=== PATIENT | female | born 1935 | race Caucasian/White ===

== ENCOUNTER → 2017-04-29 09:33 | Outpatient (CLI) | payer MEDICARE, OTHER ==
[2011-03-06 06:49] VITALS: BMI 23.9
== END | disposition home or self-care (01) ==
LOC: D.MRI 09:33
DX: M25.512 Pain in left shoulder (principal)

== ENCOUNTER 2018-02-02 06:20 | Day surgery (SDC) | payer MEDICARE, OTHER ==
[2018-01-30 12:37] LABS: BASOPHILS 0.3 % (0-2); EOSINOPHILS 2.6 % (0-7); HEMATOCRIT 39.1 % (36.0-48.0); HEMOGLOBIN 13.2 g/dL (12-16); IMMATURE GRANULOCYTES 0.3 % (0-5); LYMPHOCYTES 29.4 % (15-50); MCH 31.1 pg (26.0-34.0); MCHC 33.8 g/dL (31.0-37.0); MCV 92.2 fL (80.0-100.0); MEAN PLATELET VOLUME 8.9 fL (7.4-10.4); MONOCYTES 5.7 % (2-11); NEUTROPHILS 61.7 % (40-80); PLATELET COUNT 304 10x3/uL (130-400); RBC 4.24 10x6/uL (4.00-5.40); RDW 13.2 % (11.5-14.5)
[2018-01-30 13:09] LABS: ANION GAP 14.5 mmol/L (8-16); CALCIUM 11.1 mg/dL (8.5-10.1); CARBON DIOXIDE 26.8 mmol/L (21.0-32.0); CREATININE - SERUM 0.9 mg/dL (0.6-1.3); POTASSIUM - SERUM 4.3 mmol/L (3.5-5.1)
[~2018-02-02] VITALS: Ht 149.9 cm; Wt 54.4 kg
--- NOTE | ~2018-02-02 | OP ---
PATIENT NAME: AYAH VIRAMONTES MEDICAL RECORD: [id number] :36 LOCATION:[facility] ADMISSION DATE: SURGEON: YOLANDA HENNING MD DATE OF OPERATION: 02/02/2018 PREOPERATIVE DIAGNOSES: 1. Rotator cuff tear of the right shoulder with impingement syndrome. 2. Acromioclavicular arthritis. 3. Biceps tendinitis. 4. Carpal tunnel syndrome of the right hand. POSTOPERATIVE DIAGNOSES: 1. Rotator cuff tear of the right shoulder with impingement syndrome. 2. Acromioclavicular arthritis. 3. Biceps tendinitis. 4. Carpal tunnel syndrome of the right hand. PROCEDURES: 1. Arthroscopic rotator cuff repair. 2. Arthroscopic biceps tenotomy. 3. Arthroscopic distal clavicle excision done through separate incision. 4. Open carpal tunnel release. 5. Arthroscopic subacromial decompression with acromioplasty and bursectomy. SURGEON: Yolanda Henning MD DATA CAPTURE SPECIALIST: Leonel Lozano APN, FA ANESTHESIA: General. INTRAOPERATIVE COMPLICATIONS: None. SUMMARY OF PATHOLOGIC FINDINGS: The patient did present to the clinic with both positive carpal tunnel syndrome findings and testing. Furthermore, the patient had an MRI that showed a rotator cuff tear with impingement as well as acromioclavicular arthritis and biceps tendinitis. The procedures were all performed in a lateral position including the carpal tunnel release. OPERATIVE SUMMARY IN DETAIL: After obtaining the appropriate preoperative orthopedic surgery consent as well as anesthetic consultation, evaluation and clearance, the patient was brought to the operating room and placed on the operating table in supine position. After adequate general laryngeal mask airway was administered, the patient was placed in a left lateral decubitus position. All pressure points were well padded to include down leg peroneal pad as well as axillary roll. The entire right upper extremity and shoulder were then prepped and draped in routine sterile fashion. The arm was held in the Arthrex traction boom at 30 degrees of forward flexion, 30 degrees of abduction, and 10 pounds of traction laterally. Arthroscopy was established in the glenohumeral joint for posterior portal. Anterior portal was established in the anterior safe interval. Transrotator cuff tear portal was established laterally through which a diagnostic arthroscopy did show the patient to have some bicipital labral tearing; however, severe biceps tendonitis was noted with substantial fraying. Biceps was then tenotomized and mild labral debridement was performed. Having completed this, the articular aspect of the supraspinatus tendinous footprint was decorticated back to bleeding cancellous bone. Having OPERATIVE REPORT [id number] WANDERAYAH completed this, attention was then turned to the subacromial space. While in the subacromial space, Arthrex tissue ablation system was utilized to denude the undersurface of the acromion of all soft tissue elements and release the coracoacromial ligament. A 5-0 barrel bur was then used to perform acromioplasty at the level of acromioclavicular joint and then through a separate anterior arthroscopic portal, distal clavicle excision for 1 cm was completed. Attention was then turned to the rotator cuff. Further decortication was carried out in the subacromial space for reapproximation of the rotator cuff. Inverted FiberTape was then placed in 2 separate positions for reapproximation of the rotator cuff back to the supraspinatus tendinous footprint. It was held firmly with a 5.0 and 4.75 suture anchor SwiveLock from Arthrex. Having completed this, arthroscopy portals were closed in routine interrupted fashion. Temporary dressings were applied. The patient's arm was then sterilely taken out of the traction boot. An Esmarch bandage was then used as a tourniquet. The distal aspect of the extremity was exsanguinated. The tourniquet was then held in place. Incision was made in the mid palmar aspect, taken down to the level of transverse carpal ligament. Transverse carpal ligament was exposed as was the median nerve. The median nerve was then protected with a [place] elevator and then the [place] light knife was then used under direct visualization to release the entire transverse carpal ligament. Having completed this, the wound was then irrigated and closed with 4-0 Prolene in running fashion by Osiel Lozano APN. Sterile dressings were applied at this and at the shoulder. The patient was then awakened and taken to recovery room in stable condition. All final needle and sponge counts were correct. TRANSINT:[id number] Voice Confirmation ID: [id number] DOCUMENT ID: [id number] 03/03/2018 Edited to add Osiel Lozano APN to body of report, dm. JUVENCIO CRUZ, YOLANDA PHILIPPE at 1932 CC: [id number] DICTATION DATE: 02/06/18 1058 GLOVE PRESSER: 02/06/18 1231 [facility] 02/02/18 [id number] [place] [address]
[~2018-02-02 06:20] MED LIST: DULERA 100 MCG8.8 GM INH; LOVASTATIN20 MG PO; OMEPRAZOLE20 M1 PO; PRINIVIL20 MG PO; XALATAN 0.0052.5 ML EACH EYE
[2018-02-02] MEDS ORDERED: ZOFRAN4 MG PO (07:23)
[2018-02-02 07:37] VITALS: BP 120/84; Ht 149.9 cm; Wt 54.4 kg
[2018-02-02] MEDS ORDERED: DILAUDID2 MG PO (10:39)
[2018-02-02] MEDS ORDERED: ZOFRAN ODT4 MG/UDTAB PO (10:40)
== END 2018-02-02 16:55 | disposition home or self-care (01) ==
LOC: D.OPS 06:20 → D.PAN 07:30 → D.OPS 08:45
PROVIDERS: Anesthesiology
DX: M75.41 Impingement syndrome of right shoulder (principal); M75.21 Bicipital tendinitis, right shoulder; G56.01 Carpal tunnel syndrome, right upper limb; Z01.812 Encounter for preprocedural laboratory examination

== ENCOUNTER → 2018-04-15 15:24 | Outpatient (CLI) | payer MEDICARE, OTHER ==
[2018-02-02 07:37] VITALS: BMI 24.3
[~2018-04-15 15:24] MED LIST changes: +DILAUDID2 MG PO; +ZOFRAN ODT4 MG/UDTAB PO; +ZOFRAN4 MG PO
== END | disposition home or self-care (01) ==
LOC: D.MRI 15:24
DX: M54.12 Radiculopathy, cervical region (principal); M75.102 Unspecified rotator cuff tear or rupture of left shoulder, not specified as traumatic

== ENCOUNTER 2018-05-14 05:00 | Day surgery (SDC) | payer MEDICARE, OTHER ==
[2018-05-12 10:53] LABS: BASOPHILS 0.3 % (0-2); EOSINOPHILS 2.8 % (0-7); HEMATOCRIT 39.1 % (36.0-48.0); HEMOGLOBIN 13.3 g/dL (12-16); IMMATURE GRANULOCYTES 0.2 % (0-5); LYMPHOCYTES 31.9 % (15-50); MCH 30.2 pg (26.0-34.0); MCV 88.9 fL (80.0-100.0); MEAN PLATELET VOLUME 8.9 fL (7.4-10.4); MONOCYTES 6.4 % (2-11); NEUTROPHILS 58.4 % (40-80); PLATELET COUNT 277 10x3/uL (130-400); WBC 6.4 10x3/uL (4.8-10.8)
[2018-05-12 11:02] LABS: ANION GAP 15.5 mmol/L (8-16); CALCIUM 10.4 mg/dL (8.5-10.1); CARBON DIOXIDE 25.5 mmol/L (21.0-32.0)
[~2018-05-14] VITALS: Ht 149.9 cm; Wt 56.7 kg
[2018-05-14 06:24] VITALS: BP 137/72; Ht 149.9 cm; Wt 56.7 kg
[2018-05-14] MEDS ORDERED: DILAUDID2 MG PO (09:07)
--- NOTE | 2018-05-14 09:55 | NUR ---
PATIENT VOIDED IN PACU 200CC YELLOW URINE. WILL CONTINUE TO MONITOR.
--- NOTE | 2018-05-14 10:11 | NUR ---
CONSULTED ANESTHESIA REGARDING RESTLESSNESS AND UNABLE TO BE STILL. ANESTHESIA AT BEDSIDE. VERBAL ORDERS RECEIVED AND IMPLEMENTED. VERBAL ORDERS RECEIVED FROM DR HOWELL TO ADMINISTER VERSED. ORDERS RECEIVED AND IMPLEMENTED. SEE MAR.
--- NOTE | 2018-05-14 11:48 | NUR ---
1149 ANDRES MARCOS CRNA HERE FOR FOLLOWUP EVALUATION ON TREMORS AND PT'S OXYGEN SATURATION. TREMORS AT A MINIMUM. PT DOES REPORT THAT ON OCCASION SHE HAS TREMORS AT HOME. O2 SAT AT 92%. PT USED RESCUE INHALER X2 TO HELP IMPROVE SATS. [place]ON REQUESTS TO WATCH PATIENT A LITTLE LONGER BEFORE DISCHARGE.
--- NOTE | 2018-05-14 13:48 | NUR ---
1230 IV DC'D. CATHETER INTACT. NO BLEEDING AT SITE. BANDAID APPLIED. ANDRES MARCOS CRNA HERE TO EVALUATE PRIOR TO DISCHARGE HOME. O2 SAT STABLE. OCC TREMOR BUT GREATLY REDUCED. PT HAS BEEN CLEARED TO GO HOME. 1245 DR HENNING HERE AND AWARE OF PT NOT HAVING HELP AT HOME. REQUESTED THAT GLORIA IN HIS OFFICE BE CALLED TO SET UP HOME HEALTH SERVICES. PT FULLY DRESSED WITH ASSISTANCE OF TWO NURSES.
--- NOTE | 2018-05-14 14:26 | OP ---
PATIENT NAME: AYAH VIRAMONTES MEDICAL RECORD: [id number] :36 LOCATION:[facility] ADMISSION DATE: SURGEON: YOLANDA HENNING MD DATE OF OPERATION: 05/14/2018 PREOPERATIVE DIAGNOSIS: Recurrent rotator cuff tear of the left shoulder. POSTOPERATIVE DIAGNOSIS: Recurrent rotator cuff tear of the left shoulder. PROCEDURE: Arthroscopic assisted rotator cuff repair of the left shoulder. SURGEON: Yolanda Henning MD. PAPER GUILLOTINE OPERATOR: Tasneem Caballero. INTRAOPERATIVE COMPLICATIONS: None. SUMMARY OF PATHOLOGIC FINDINGS: The patient had completely re-torn her rotator cuff from previous fixation in keeping with her known recurrent injury as well as physical examination and MRI. OPERATIVE SUMMARY IN DETAIL: After obtaining the appropriate preoperative orthopedic surgery consent as well as anesthetic consultation, evaluation and clearance, the patient was brought to the operating room and placed on the operating table in supine. After adequate general laryngeal mask airway was administered, the patient was placed in the right lateral decubitus position. All pressure points were well padded to include down leg peroneal pad as well as axillary roll. The patient was held firmly to the operating table using the vacuum pack suction system. The patient's right upper extremity and shoulder were then prepped and draped in a routine sterile fashion. The arm was held in the Arthrex traction boom at 30 degrees of forward flexion, 30 degrees of abduction with 10 pounds of traction laterally. Arthroscopy was established in the glenohumeral joint from the posterior portal. Anterior portal was established in the anterior safe interval. Diagnostic arthroscopy did reveal the above findings. Attention was turned to the subacromial space. All previously placed anchors and sutures were removed serially and sequentially. Further decortication was carried out as far as cleaning up of the rotator cuff tear itself. Multiple intraoperative photographs were taken. The medial row of the SpeedBridge were placed. The wedge tails were passed medially and the rotator cuff and then split, crisscrossed, and attached much further down into the metaphyseal area for good fixation. It is of note that the lateral row suture anchors were exchanged from the 4.75 to the 5.5 for better fixation in this 82-year-old female. Good rotator cuff repair was achieved. The tail of the anterior inferior SwiveLock was used to suture down in one of the dog ears. This was quite simply tied. Having completed this, the portals were closed in routine interrupted fashion using 4-0 Prolene. Sterile dressings were applied. The patient was awakened and taken to recovery room in stable condition. All final needle and sponge counts were correct. TRANSINT:[id number] Voice Confirmation ID: [id number] DOCUMENT ID: [id number] OPERATIVE REPORT [id number] AYAH VIRAMONTES MD, YOLANDA PHILIPPE at 1426 CC: [id number] DICTATION DATE: 05/14/18920 [employer] OPERATOR HELPER: 05/14/18 1059 [facility] 05/14/18 [address] [place] [address]
== END 2018-05-14 13:00 | disposition home or self-care (01) ==
LOC: D.OPS 05:00 → D.PAN 07:30 → D.OPS 13:00
PROVIDERS: Anesthesiology
DX: M75.102 Unspecified rotator cuff tear or rupture of left shoulder, not specified as traumatic (principal)

== ENCOUNTER 2018-10-23 16:53 | Emergency (ER) | payer MEDICARE, OTHER ==
[~2018-10-23] VITALS: Ht 149.9 cm; Wt 56.4 kg
[2018-10-23 17:00] VITALS: Ht 149.9 cm; Wt 56.4 kg
[2018-10-23] MEDS ORDERED: BAYER CHEWABLE81 MG PO (17:03)
[2018-10-23] MEDS ORDERED: LIPITOR20 MG PO ×3 (17:03→17:05)
[2018-10-23] MEDS ORDERED: HTN MED (17:06)
[2018-10-23 20:32] LABS: BASOPHILS 0.1 % (0-2); EOSINOPHILS 3.1 % (0-7); HEMATOCRIT 36.9 % (36.0-48.0); HEMOGLOBIN 12.7 g/dL (12-16); IMMATURE GRANULOCYTES 0.3 % (0-5); LYMPHOCYTES 19.6 % (15-50); MCH 29.9 pg (26.0-34.0); MCHC 34.4 g/dL (31.0-37.0); MCV 86.8 fL (80.0-100.0); MEAN PLATELET VOLUME 8.8 fL (7.4-10.4); MONOCYTES 9.9 % (2-11); PLATELET COUNT 250 10x3/uL (130-400); RBC 4.25 10x6/uL (4.00-5.40); RDW 14.3 % (11.5-14.5); WBC 7.8 10x3/uL (4.8-10.8)
[2018-10-23 20:43] LABS: APTT 26.7 SECONDS (22.8-39.4); INR 0.96 (0.85-1.17); PROTIME 12.3 SECONDS (11.6-15.0)
[2018-10-23] MEDS ORDERED: HYDROCODON-ACE1 EAC7 PO (20:50)
[2018-10-23 20:52] LABS: ALBUMIN 3.3 g/dL (3.4-5.0); ANION GAP 12.8 mmol/L (8-16); BILIRUBIN - TOTAL 0.55 mg/dL (0.2-1.3); CALCIUM 9.8 mg/dL (8.5-10.1); CARBON DIOXIDE 25.8 mmol/L (21.0-32.0); POTASSIUM - SERUM 3.6 mmol/L (3.5-5.1); PROTEIN - SERUM 6.8 g/dL (6.4-8.2)
[2018-10-23] MEDS ORDERED: ZOFRAN ODT4 MG/UDTAB PO (20:52)
[2018-10-23 21:36] VITALS: BP 136/74
== END 2018-10-23 21:58 | disposition home or self-care (01) ==
LOC: D.ER 16:53
PROVIDERS: Family Medicine
DX: S42.202A Unspecified fracture of upper end of left humerus, initial encounter for closed fracture (principal); W18.30XA Fall on same level, unspecified, initial encounter; I10 Essential (primary) hypertension; J44.9 Chronic obstructive pulmonary disease, unspecified

== ENCOUNTER → 2018-11-25 15:53 | Outpatient (CLI) | payer MEDICARE, OTHER ==
[2018-10-23 17:00] VITALS: BMI 25.1
[~2018-11-25 15:53] MED LIST changes: +BAYER CHEWABLE81 MG PO; +BREO ELLIPTA 11 EACH INH; +FUROSEMIDE20 MG PO; +HTN MED; +HYDROCODON-ACE1 EAC7 PO; +LIPITOR20 MG PO; +METOPROLOL TART25 MG PO; +SOMA250 MG PO; +TORADOL10 MG PO
== END | disposition home or self-care (01) ==
LOC: D.US 15:53
PROVIDERS: ATTEND Clinical Nurse Specialist Family Health
DX: R60.0 Localized edema (principal)

== ENCOUNTER → 2018-12-01 13:29 | Outpatient (CLI) | payer MEDICARE, OTHER ==
[2018-10-23 17:00] VITALS: BMI 25.1
== END | disposition home or self-care (01) ==
LOC: D.CT 13:29
PROVIDERS: ATTEND Clinical Nurse Specialist Family Health
DX: S42.242D 4-part fracture of surgical neck of left humerus, subsequent encounter for fracture with routine healing (principal)

== ENCOUNTER 2018-12-08 05:39 | Outpatient (CLI) | payer MEDICARE, OTHER ==
[~2018-12-08] VITALS: Ht 149.9 cm; Wt 55.5 kg
[~2018-12-08 05:39] MED LIST changes: -BREO ELLIPTA 11 EACH INH; -FUROSEMIDE20 MG PO; -METOPROLOL TART25 MG PO; -SOMA250 MG PO; -TORADOL10 MG PO
[2018-12-08 05:55] LABS: BASOPHILS 0.5 % (0-2); EOSINOPHILS 5.1 % (0-7); HEMOGLOBIN 12.5 g/dL (12-16); IMMATURE GRANULOCYTES 0.1 % (0-5); LYMPHOCYTES 39.6 % (15-50); MCH 30.3 pg (26.0-34.0); MCHC 34.7 g/dL (31.0-37.0); MCV 87.2 fL (80.0-100.0); MEAN PLATELET VOLUME 8.5 fL (7.4-10.4); MONOCYTES 8.9 % (2-11); NEUTROPHILS 45.8 % (40-80); PLATELET COUNT 246 10x3/uL (130-400); RBC 4.13 10x6/uL (4.00-5.40); RDW 13.4 % (11.5-14.5); WBC 7.3 10x3/uL (4.8-10.8)
[2018-12-08 06:19] LABS: APTT 27.7 SECONDS (22.8-39.4); INR 0.94 (0.85-1.17); PROTIME 12.1 SECONDS (11.6-15.0)
[2018-12-08 06:22] LABS: ANION GAP 14.2 mmol/L (8-16); CALCIUM 10.3 mg/dL (8.5-10.1); CARBON DIOXIDE 26.7 mmol/L (21.0-32.0); POTASSIUM - SERUM 3.9 mmol/L (3.5-5.1)
[2018-12-08] MEDS ORDERED: METOPROLOL TART25 MG PO (07:01)
[2018-12-08] MEDS ORDERED: FUROSEMIDE20 MG PO (07:02)
[2018-12-08] MEDS ORDERED: TORADOL10 MG PO (07:02)
[2018-12-08] MEDS ORDERED: SOMA250 MG PO (07:03)
[2018-12-08] MEDS ORDERED: BREO ELLIPTA 11 EACH INH (07:04)
[2018-12-08 07:07] VITALS: Ht 149.9 cm; Wt 55.5 kg
--- NOTE | 2018-12-08 07:39 | NUR ---
PT/DAUGHTER WISH TO SPEAK TO DR. AVILA AND ANESTHESIA TEAM BEFORE SIGNING CONSENTS. I CALLED RADIOLOGY TO INFORM THEM. NO ONE ANSWERED. WILL CONTINUE TO CALL.
--- NOTE | 2018-12-08 09:05 | NUR ---
PATIENT CAME BACK TO THE UNIT, PROCEDURE WAS NOT DONE. PHYSICIAN WOULD LIKE A SCAN DONE PRIOR TO A BIOPSY. KENY
--- NOTE | 2018-12-08 09:07 | NUR ---
IV REMOVED WITH NO COMPLAINTS. MV
--- NOTE | 2018-12-08 09:37 | NUR ---
PATIENT ATE A REGULAR TRAY SHE DID NOT HAVE A PROCEDURE. SHE TOLERATED HER MEAL WELL. MV
--- NOTE | 2018-12-08 09:43 | NUR ---
PATIENT LEFT UNIT WITH DAUGHTER. MV
== END 2018-12-08 09:40 ==
LOC: D.SP 05:39 → D.CT 08:00 → D.SP 09:40
PROVIDERS: General Practice; ATTEND Orthopaedic Surgery
DX: J84.17 Other interstitial pulmonary diseases with fibrosis in diseases classified elsewhere (principal); Z53.9 Procedure and treatment not carried out, unspecified reason; Z01.812 Encounter for preprocedural laboratory examination

== ENCOUNTER 2019-01-06 06:40 | Inpatient (IN) | payer MEDICARE, OTHER ==
[~2019-01-06] VITALS: Ht 149.9 cm; Wt 56.2 kg
[~2019-01-06 06:40] MED LIST changes: +BREO ELLIPTA 11 EACH INH; +FUROSEMIDE20 MG PO; +METOPROLOL TART25 MG PO; +SOMA250 MG PO; +TORADOL10 MG PO
[2019-01-06 13:24] LABS: BASOPHILS 0.2 % (0-2); EOSINOPHILS 3.3 % (0-7); HEMOGLOBIN 13.6 g/dL (12-16); IMMATURE GRANULOCYTES 0.2 % (0-5); LYMPHOCYTES 31.5 % (15-50); MCH 31.1 pg (26.0-34.0); MCV 91.5 fL (80.0-100.0); MEAN PLATELET VOLUME 8.9 fL (7.4-10.4); MONOCYTES 9.6 % (2-11); NEUTROPHILS 55.2 % (40-80); PLATELET COUNT 260 10x3/uL (130-400); RBC 4.37 10x6/uL (4.00-5.40); RDW 13.5 % (11.5-14.5); WBC 5.8 10x3/uL (4.8-10.8)
[2019-01-06 13:39] LABS: APPEARANCE CLEAR (CLEAR); BILIRUBIN NEGATIVE (NEGATIVE); COLOR YELLOW (YELLOW); GLUCOSE NEGATIVE (NEGATIVE); KETONE NEGATIVE (NEGATIVE); NITRITE NEGATIVE (NEGATIVE); PROTEIN NEGATIVE (NEGATIVE); SPECIFIC GRAVITY 1.015 (1.005-1.020); UROBILINOGEN NORMAL (NORMAL)
[2019-01-06 13:39] LABS: INR 0.93 (0.85-1.17)
[2019-01-06 13:41] LABS: ANION GAP 11.5 mmol/L (8-16); CALCIUM 9.9 mg/dL (8.5-10.1); CARBON DIOXIDE 25.5 mmol/L (21.0-32.0); CREATININE - SERUM 0.8 mg/dL (0.6-1.3)
[2019-01-06] MEDS ORDERED: GLUCOSAMINE HC500 MG PO (13:54)
[2019-01-06] MEDS ORDERED: CENTRUM SILVER1 EAC3 PO (13:55)
[2019-01-06] MEDS ORDERED: ASCORBIC ACID500 MG PO (13:55)
[2019-01-06] MEDS ORDERED: VITAMIN D31000 UNI2 PO (13:55)
[2019-01-06] MEDS ORDERED: FISH OIL 1,0001 CA1 PO (13:56)
[2019-01-06] MEDS ORDERED: CRANBERRY PO (13:56)
[2019-01-07 10:37] VITALS: BMI 25.1; BMI 27.1
--- NOTE | 2019-01-07 12:47 | NUR ---
PLASMA BLADE SET TO 6/8 BOVIE PAD RIGHT THIGH [id number] EXP 05/08/20 LAMINAR FLOW NOT IN USE TRAFFIC MONITORED IN AND OUT OF ROOM AND KEPT TO MINIMUM VANCOMYCIN 1GM AND TOBRAMYCIN 1.2GM APPLIED TO WOUND BED PREPPED SHOULDER TO FINGERS CIRCUMFERENTIALLY WITH HIBICLENS AND ALOCHOL AND THEN CHLORAPREP
--- NOTE | 2019-01-07 13:35 | NUR ---
OPA IN AIRWAY ON ADMIT
[2019-01-07 14:32] VITALS: BP 134/78
[2019-01-07 14:49] VITALS: BP 134/78; BMI 25.1
[2019-01-07 17:01] VITALS: BP 110/68
--- NOTE | 2019-01-07 18:14 | NUR ---
PT RESTING IN BED. EATING DINNER. NO S/S OF ACUTE DISTRESS. CL IN PLACE. DAUGHTER AT BEDSIDE.
[2019-01-07 20:00] VITALS: BP 104/59
--- NOTE | 2019-01-07 21:45 | NUR ---
AWAKE,ALERT.NO COMPALITNS VOICED. RESP UNALBORED. DRESSING TO LEFT SHOULDER INTACT WITHOUT DRAINAGE NOTED. IMMOBILIZER INTACT. IV TO RFA WIHTOUT REDNESS OR EDEMA NOTED. CL IN REACH.FAMILY AT BEDSIDE.
[2019-01-08] VITALS: BP 110/56
--- NOTE | 2019-01-08 00:48 | NUR ---
I have reviewed this patient and I concur with the Shift Assessment completed by the Licensed Practical Nurse today this shift.
[2019-01-08 04:00] VITALS: BP 97/42
--- NOTE | 2019-01-08 07:24 | NUR ---
ALERT AND ORIENTED. LUNGS CLEAR BILATERALLY. HEART SOUNDS S1 AND S2 HEARD IN ALL OROZCO. BOWEL SOUNDS ACTIVE X 4. DRSG C/D/I TO LEFT SHOULDER. IMMOBILIZER IN PLACE. DENIES PAIN. DENIES NEEDS. BED LOW. FALL PRECAUTIONS IN PLACE. CALL LINARES AND PERSONAL ITEMS IN REACH. WILL CONTINUE TO MONITOR.
[2019-01-08 08:15] VITALS: BP 102/49
--- NOTE | 2019-01-08 08:56 | NUR ---
HALF NORCO GIVEN PER PATIENT REQUEST. PRN ZOFRAN GIVEN PER REQUEST. PATIENT REFUSED ALL OTHER MEDICATIONS AND STATES WILL TAKE AT HOME TONIGHT.
[2019-01-08 09:29] VITALS: Ht 149.9 cm; Wt 56.2 kg
[2019-01-08] MEDS ORDERED: ULTRAM50 MG PO (09:57)
[2019-01-08] MEDS ORDERED: ZOFRAN ODT4 MG/UDTAB PO (09:58)
--- NOTE | 2019-01-08 10:00 | NUR ---
PATIENT DAUGHTER STATES WANTS TO DISCHARGE TODAY. JOELLE GONZALES WENT IN ROOM TO SEE FAMILY. STATES WILL TALK TO JUVENCIO ABOUT PT DISCHARGING. DENIES FURTHER NEEDS. WILL CONTINUE TO MONITOR.
--- NOTE | 2019-01-08 11:07 | NUR ---
SPOKE WITH JENISE IN [employer] TO OBTAIN [facility] DRSGS FOR DISCHARGE.
--- NOTE | 2019-01-08 12:59 | NUR ---
DISCHARGE EDUCATION PROVIDED BOTH WRITTEN AND VERBAL TO PATIENT AND DAUGHTER AT BEDSIDE. VERBALIZED UNDERSTANDING. DENIES FURTHER QUESTIONS. IV REMOVED FROM RFA WITH TIP INTACT. AQUACEL AG X 2 SENT WITH PATIENT. EDUCATION PROVIDED TO PATIENT AND DAUGHTER TO CHANGE DRSG ON P/O DAY 7. VERBALIZED UNDERSTANDING. DENIES FURTHER NEEDS. DAUGHTER ASSISTING TO GET DRESSED AND STATES WILL NOTIFY NURSE WHEN READY FOR WC TO GO DOWNSTAIRS.
[2019-01-08 13:13] VITALS: BP 121/74
--- NOTE | 2019-01-11 10:50 | OP ---
PATIENT NAME: ALEXA DIAZ MEDICAL RECORD: [id number] :36 LOCATION:[id number] ADMISSION DATE:01/07/19 SURGEON: YOLANDA HENNING MD DATE OF OPERATION: 01/07/2019 PREOPERATIVE DIAGNOSIS: Fracture nonunion of the left shoulder, intra-articular extension. POSTOPERATIVE DIAGNOSIS: Fracture nonunion of the left shoulder, intra-articular extension. PROCEDURE: Left total shoulder arthroplasty. SURGEON: Yolanda Henning MD SCHOOL PHOTOGRAPHER: Josemanuel Liriano. INTRAOPERATIVE COMPLICATIONS: None. IMPLANTS: Tornier 6.5 fracture stem, size small glenoid with a size 41 humeral head. SUMMARY OF PATHOLOGIC FINDINGS: There did not appear to be any pathologic findings in the shoulder. She did have a humeral head nonunion. The greater and lesser tuberosities fortunately had healed with excellent rotator cuff attachment. The patient did have multiple suture anchors in her humeral head from prior operative summary times 2. 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 INDICATIONS: Ms. Alexa Diaz is an 83-year-old female who had had 2 prior rotator cuff surgeries, the last one had healed nicely and she was doing very well and fell and sustained multipart proximal humerus fracture of her left shoulder. As a part of the workup regarding this, a CT scan taken of her shoulder to evaluate healing showed that she had a mass of her lungs. The mass eventually turned out to be metastatic squamous cell carcinoma. After the appropriate pulmonary consultation as well as hematology/oncology consultation, the patient was cleared to have her shoulder fixed as it was her biggest complaint. Care was taken to use sterile water rather than normal saline. However, I did not see any evidence of metastatic disease, yet the pathology awaits. OPERATIVE SUMMARY IN DETAIL: After obtaining the appropriate preoperative orthopedic surgery consent as well as anesthetic consultation, evaluation and clearance, the patient was brought to the operating room and placed on the operating table in supine position. After adequate general laryngeal mask airway was administered, the patient was placed in the beach chair position. All pressure points were well padded. She was held firmly to the operating table using the vacuum pack suction system. Left upper extremity and shoulder were then prepped and draped in routine sterile fashion. Deltopectoral incision was taken down. The cephalic vein was identified and protected throughout the entire procedure. The deltoid had to be very gently released from the shoulder capsule as there was measurable amount of deltoid scarring to the capsule given the fact that she had 2 prior rotator cuff tear surgeries and the fracture. After this had been done, the conjoined tendon was gently retracted medially as OPERATIVE REPORT [id number] ALEXA DIAZ to avoid any excessive traction to the musculocutaneous nerve. At this point, it did appear that the tuberosities had healed. The subscapularis was taken down. The biceps tendon had already been tenodesed. The subscapularis was taken down and reflected. The shoulder was then dislocated into the incision. The humeral head did have under cutting of the area of healing consistent with the nonunion as seen on the CT scan. General care was taken to make a proximal humerus cut. After the proximal humerus cut was made, the entire cavity of the humeral head and proximal humerus was resected with removal of all the prior placed anchors. The entire portion of this bone was sent to pathology for evaluation. However, again good healing of the greater and lesser tuberosities was noted with good overall retention of the patient's anatomy. At this point, after some degree of trepidation, the humeral shaft was found and evaluated. Serial and sequential reaming and broaching were done. While a 9 would likely fit, I did not want to take a chance of fracturing this patient's osteoporotic bone, so that a size 6.5 trial was [address] into place. The trial was left in place while the glenoid was approached. 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 Serial and sequential labrectomy was then followed by placement of the guide pin. A gentle reaming was done with the 3 x small. It was the appropriate curvature using the Tornier system. The 3 x small reaming was done to just touch the subcortical bone and then preparations were made for final implantation. The size small trial was perfect for this patient, so thusly a small trial was cemented into place. All excess cement was removed. It was held in place until the cement hardened on the back table. Next, attention was returned to the proximal humerus. A size 6.5 was chosen with a 41 with an offset set at 6. The cement restrictor was put into place and then the final component was cemented into place. After all excess cement was removed around the fracture stem of Tornier, it was reduced, taken through range of motion and found to be stable in all planes. Subscapularis was reapproximated to the supraspinatus as well as to the lesser tuberosity using transosseous #2 Ethibond. This resulted in excellent reparation of the anterior approach. The wound was then copiously irrigated. It was filled with a gram of vancomycin, a gram of tobramycin and closed by Josemanuel liriano using #1 Vicryl, 2-0 Vicryl, and skin dorian. Sterile dressings were applied. The patient was awakened without substantial complications, taken to recovery room in stable condition. All final needle and sponge counts were correct. TRANSINT:[id number] Voice Confirmation ID: [id number] DOCUMENT ID: [id number] JUVENCIO CRUZ, YOLANDA PHILIPPE at 1050 CC: [id number] DICTATION DATE: 01/08/19 1103 MANAGER EMPLOYEE RELATIONS: 01/08/19 1126 [facility] IN 01/08/19 [facility] [address] [place] [address]
== END 2019-01-08 13:50 | disposition home or self-care (01) | DRG 483 ==
LOC: D.MS 01-07 10:05 → D.SDCHOLD 01-07 10:05 → D.MS 01-07 13:50 → D.SDCHOLD 01-07 18:45 → D.MS 01-08 13:50
PROVIDERS: ADMIT Orthopaedic Surgery; ATTEND Orthopaedic Surgery
PROC: 0RRK0JZ Replacement of Left Shoulder Joint with Synthetic Substitute, Open Approach (ICD-10-PCS; principal; 2019-01-07 12:00)
DX: S42.92XK Fracture of left shoulder girdle, part unspecified, subsequent encounter for fracture with nonunion (principal); J44.9 Chronic obstructive pulmonary disease, unspecified; I10 Essential (primary) hypertension; M19.90 Unspecified osteoarthritis, unspecified site; K21.9 Gastro-esophageal reflux disease without esophagitis

== ENCOUNTER → 2019-03-16 13:04 | Outpatient (CLI) | payer MEDICARE, OTHER ==
[2019-01-08 09:29] VITALS: BMI 25.0
[~2019-03-16 13:04] MED LIST changes: +ASCORBIC ACID500 MG PO; +CENTRUM SILVER1 EAC3 PO; +CRANBERRY PO; +FISH OIL 1,0001 CA1 PO; +GLUCOSAMINE HC500 MG PO; +ULTRAM50 MG PO; +VITAMIN D31000 UNI2 PO
== END | disposition home or self-care (01) ==
LOC: D.RAD 13:04
PROVIDERS: ATTEND Orthopaedic Surgery
DX: Z96.612 Presence of left artificial shoulder joint (principal)